=== PATIENT | female | born 1985 | race Two or more races ===

== ENCOUNTER 2017-04-24 09:18 | Outpatient (CLI) | payer BC ==
[2017-04-24] MEDS ORDERED: GADOVERSETAMIDE 5 MMOL/10 ML VIAL IJ ONE (09:19)
[2017-04-24 10:32] LABS: CALCIUM, SERUM 9.1 mg/dL (8.5-10.1); CREATININE 0.7 mg/dL (0.6-1.3); POTASSIUM 3.4 mmol/L (3.5-5.1)
== END 2017-04-24 23:59 | disposition home or self-care (01) ==
LOC: MRI 09:18
DX: G93.0 Cerebral cysts (principal)
CPT/HCPCS: 36415; 70553; 80048; A9579

== ENCOUNTER → 2017-06-04 | Outpatient (CLI) | payer BC | END | disposition home or self-care (01) | LOC: LAB 07:58 | DX: E87.6 Hypokalemia (principal) | CPT/HCPCS: 36415; 84132-TC ==